=== PATIENT | male | born 1995 | race Caucasian/White ===

== ENCOUNTER 2017-07-14 12:24 | Emergency (ER) | payer MEDICAID ==
[~2017-07-14 12:24] MED LIST: ALBU8HFA PO; NO HOME MEDS
[2017-07-14] MEDS ORDERED: PENI250T2 PO (12:46)
[2017-07-14] MEDS ORDERED: HYDR-569 PO (12:46)
[2017-07-14 12:51] VITALS: BP 172/99
== END 2017-07-14 12:55 | disposition home or self-care (01) ==
LOC: ER 12:25
DX: K08.89 Other specified disorders of teeth and supporting structures (principal); F12.10 Cannabis abuse, uncomplicated; F15.10 Other stimulant abuse, uncomplicated; J45.909 Unspecified asthma, uncomplicated; Z59.0 Homelessness
CPT/HCPCS: 99283

== ENCOUNTER 2017-07-31 15:20 | Emergency (ER) | payer MEDICAID ==
[~2017-07-31] VITALS: Ht 172.7 cm; Wt 88.6 kg
[~2017-07-31 15:20] MED LIST changes: +HYDR-569 PO
[2017-07-31] MEDS ORDERED: HYDR-3965 PO (15:55)
[2017-07-31 16:09] VITALS: BP 148/87
== END 2017-07-31 16:03 | disposition home or self-care (01) ==
LOC: ER 15:21
DX: S02.5XXD Fracture of tooth (traumatic), subsequent encounter for fracture with routine healing (principal); K08.89 Other specified disorders of teeth and supporting structures; F12.10 Cannabis abuse, uncomplicated; F15.10 Other stimulant abuse, uncomplicated; J45.909 Unspecified asthma, uncomplicated; Z59.0 Homelessness; Z79.899 Other long term (current) drug therapy; X58.XXXD Exposure to other specified factors, subsequent encounter
CPT/HCPCS: 99282; 99283

== ENCOUNTER 2017-09-26 11:42 | Emergency (ER) | payer MEDICAID ==
[~2017-09-26] VITALS: Ht 190.5 cm; Wt 88.8 kg
[2017-09-26 12:10] VITALS: BP 126/76
[2017-09-26] MEDS ORDERED: HYDROcodone/acetaminophen 5mg/325mg tablet PO ONE (12:30)
[2017-09-26] MEDS ORDERED: naproxen 500mg tablet PO ONE (12:30)
[2017-09-26] MEDS ORDERED: penicillin V potassium 500mg tablet PO ONE (12:30)
[2017-09-26] MEDS ORDERED: NAPR-56 PO (12:32)
[2017-09-26] MEDS ORDERED: PENI500T2 PO (12:32)
== END 2017-09-26 12:56 | disposition home or self-care (01) ==
LOC: ER 11:43
DX: K08.89 Other specified disorders of teeth and supporting structures (principal); J45.909 Unspecified asthma, uncomplicated; F12.10 Cannabis abuse, uncomplicated; F15.10 Other stimulant abuse, uncomplicated; Z56.0 Unemployment, unspecified; Z60.2 Problems related to living alone; Z59.0 Homelessness; Z79.899 Other long term (current) drug therapy
CPT/HCPCS: 99284

== ENCOUNTER 2018-01-08 13:06 | Emergency (ER) | payer MEDICAID ==
[~2018-01-08] VITALS: Ht 190.5 cm; Wt 79.5 kg
[2018-01-08 13:08] VITALS: BP 140/75
== END 2018-01-08 16:15 | disposition left against medical advice (07) ==
LOC: ER 13:07
DX: M54.5 Low back pain (principal); Z53.21 Procedure and treatment not carried out due to patient leaving prior to being seen by health care provider

== ENCOUNTER 2018-01-30 10:46 | Emergency (ER) | payer MEDICAID ==
[~2018-01-30] VITALS: Ht 188 cm; Wt 84.0 kg
[2018-01-30 11:58] VITALS: BP 125/56
== END 2018-01-30 11:59 | disposition home or self-care (01) ==
LOC: ER 10:47
DX: K02.9 Dental caries, unspecified (principal); F12.90 Cannabis use, unspecified, uncomplicated; F15.90 Other stimulant use, unspecified, uncomplicated; J45.909 Unspecified asthma, uncomplicated; Z79.899 Other long term (current) drug therapy; Z59.0 Homelessness; Z56.0 Unemployment, unspecified
CPT/HCPCS: 99281

== ENCOUNTER 2018-02-10 11:55 | Emergency (ER) | payer MEDICAID ==
[~2018-02-10] VITALS: Ht 185.4 cm; Wt 80.9 kg
[2018-02-10] MEDS ORDERED: azithromycin 250mg tablet PO ONE (12:40)
[2018-02-10] MEDS ORDERED: ketorolac trometh inj. 60 MG/2 ML VIAL IM ONE (12:40)
[2018-02-10] MEDS ORDERED: ACET-2119 PO (13:48)
[2018-02-10] MEDS ORDERED: IBUP-1984 PO (13:48)
[2018-02-10] MEDS ORDERED: AZIT-63 PO (13:48)
[2018-02-10 13:58] VITALS: BP 148/72
== END 2018-02-10 14:01 | disposition home or self-care (01) ==
LOC: ER 11:55
DX: R91.8 Other nonspecific abnormal finding of lung field (principal); M54.9 Dorsalgia, unspecified; F12.90 Cannabis use, unspecified, uncomplicated; F15.90 Other stimulant use, unspecified, uncomplicated; J45.909 Unspecified asthma, uncomplicated; Z79.899 Other long term (current) drug therapy; Z60.2 Problems related to living alone; Z59.0 Homelessness; Z56.0 Unemployment, unspecified
CPT/HCPCS: 71046; 96372; 99284; J1885

== ENCOUNTER 2018-10-22 03:36 | Emergency (ER) | payer MEDICAID ==
[~2018-10-22] VITALS: Ht 190.5 cm; Wt 77.0 kg
[~2018-10-22 03:36] MED LIST changes: +HYDR-4383 PO; -HYDR-569 PO
[2018-10-22] MEDS ORDERED: HYDR28CR14 TOP (03:46)
[2018-10-22 03:47] VITALS: BP 154/100
== END 2018-10-22 03:40 | disposition home or self-care (01) ==
LOC: ER 03:38
DX: L23.7 Allergic contact dermatitis due to plants, except food (principal); R21 Rash and other nonspecific skin eruption; J45.909 Unspecified asthma, uncomplicated; F17.210 Nicotine dependence, cigarettes, uncomplicated; F12.90 Cannabis use, unspecified, uncomplicated; F15.90 Other stimulant use, unspecified, uncomplicated; Z60.2 Problems related to living alone; Z59.0 Homelessness; Z56.0 Unemployment, unspecified; Z79.899 Other long term (current) drug therapy
CPT/HCPCS: 99282

== ENCOUNTER 2019-06-11 01:36 | Emergency (ER) | payer MEDICAID ==
[~2019-06-11] VITALS: Ht 188 cm; Wt 77.2 kg
[~2019-06-11 01:36] MED LIST changes: +HYDR28CR14 TOP
[2019-06-11 02:02] VITALS: BP 160/98
[2019-06-11] MEDS ORDERED: CEPH-571 PO (02:54)
== END 2019-06-11 03:12 | disposition home or self-care (01) ==
LOC: ER 01:36
DX: S90.512A Abrasion, left ankle, initial encounter (principal); J45.909 Unspecified asthma, uncomplicated; F31.9 Bipolar disorder, unspecified; F12.90 Cannabis use, unspecified, uncomplicated; F15.90 Other stimulant use, unspecified, uncomplicated; F10.99 Alcohol use, unspecified with unspecified alcohol-induced disorder; Z59.0 Homelessness; Z60.2 Problems related to living alone; Z56.0 Unemployment, unspecified; Z79.899 Other long term (current) drug therapy; W22.8XXA Striking against or struck by other objects, initial encounter; Y93.51 Activity, roller skating (inline) and skateboarding; Y92.89 Other specified places as the place of occurrence of the external cause; Y99.8 Other external cause status; Y90.9 Presence of alcohol in blood, level not specified
CPT/HCPCS: 99283

== ENCOUNTER 2020-03-10 14:30 | Emergency (ER) | payer MEDICAID ==
[~2020-03-10] VITALS: Ht 190.5 cm; Wt 72.7 kg
[~2020-03-10 14:30] MED LIST changes: +CEPH-571 PO
[2020-03-10 15:09] VITALS: BP 136/94
--- NOTE | 2020-03-10 15:19 | NUR ---
PT TO XRAY
== END 2020-03-10 16:05 | disposition home or self-care (01) ==
LOC: ER 14:32
DX: S62.636A Displaced fracture of distal phalanx of right little finger, initial encounter for closed fracture (principal); M79.644 Pain in right finger(s); M79.89 Other specified soft tissue disorders; R20.0 Anesthesia of skin; J45.909 Unspecified asthma, uncomplicated; F31.9 Bipolar disorder, unspecified; F12.90 Cannabis use, unspecified, uncomplicated; F15.90 Other stimulant use, unspecified, uncomplicated; Z72.89 Other problems related to lifestyle; Z60.2 Problems related to living alone; Z56.0 Unemployment, unspecified; Z59.0 Homelessness; Z79.2 Long term (current) use of antibiotics; Z79.899 Other long term (current) drug therapy; W18.39XA Other fall on same level, initial encounter; Y93.89 Activity, other specified; Y92.89 Other specified places as the place of occurrence of the external cause; Y99.8 Other external cause status
CPT/HCPCS: 29130; 73140; 99283

== ENCOUNTER 2020-05-27 12:09 | Inpatient (IN) | payer MEDICAID ==
[~2020-05-27] VITALS: Ht 190.5 cm; Wt 72.3 kg
[2020-05-27] MEDS ORDERED: normal saline 1000ML IV soln IV ONE (15:20)
[2020-05-27] MEDS ORDERED: vancomycin/NS 1 GM ADD-VANTAGE 250 ML IV ONE (15:25)
[2020-05-27 15:48] LABS: BASOPHILS % (AUTO) 0.1 % (0-1); EOSINOPHILS % (AUTO) 0 % (0-6); HEMATOCRIT 37.9 % (42.0-52.0); HEMOGLOBIN 12.4 g/dl (14.0-17.9); LYMPHOCYTES # (AUTO) 1.4 X10'3 (1.1-4.8); LYMPHOCYTES % (AUTO) 5.1 % (21-51); MEAN CORPUSCULAR HEMOGLOBIN 25.5 PG (27.0-31.0); MEAN CORPUSCULAR HGB CONC 32.8 g/dL (33.0-36.5); MEAN CORPUSCULAR VOLUME 77.9 FL (78-98); MONOCYTES # (AUTO) 1.5 X10'3 (0-0.9); MONOCYTES % (AUTO) 5.6 % (2-12); NEUTROPHILS # (AUTO) 23.6 X10'3 (1.8-7.7); NEUTROPHILS % (AUTO) 89.2 % (42-75); PLATELET COUNT 407 X10'3 (140-440); RED BLOOD COUNT 4.87 X10'6 (4.70-6.10); RED CELL DISTRIBUTION WIDTH 14.7 % (11.5-14.5)
[2020-05-27 15:51] LABS: WHITE BLOOD COUNT 26.5 X10'3 (4.5-11.0)
--- NOTE | 2020-05-27 16:02 | NUR ---
Pt grandfather called his phone number is [phone], if possible he would like an update but he was informed to call back if he doesn't hear from us in a few hours.
[2020-05-27] MEDS ORDERED: CefTRIAXone/D5W-Rocephin 1gm 50 ML IV ONE (16:05)
[2020-05-27 16:06] LABS: ALANINE AMINOTRANSFERASE 58 U/L (12-78); ALBUMIN/GLOBULIN RATIO 0.5 (1.1-1.5); ALKALINE PHOSPHATASE 178 IU/L (46-116); ANION GAP 8 (8-16); ASPARTATE AMINO TRANSFERASE 32 U/L (10-37); BILIRUBIN,TOTAL 0.7 MG/DL (0.1-1.0); BLOOD UREA NITROGEN 9 MG/DL (7-18); BUN/CREATININE RATIO 9.9 (5.4-32.0); CALCIUM 9.2 MG/DL (8.5-10.1); CHLORIDE 95 MMOL/L (99-107); CREATININE 0.91 MG/DL (0.60-1.10); GLUCOSE 134 MG/DL (70-104); MAGNESIUM 1.9 MG/DL (1.5-2.4); POTASSIUM 4.1 MMOL/L (3.5-5.1); SODIUM 131 MMOL/L (135-145); TOTAL CARBON DIOXIDE 28.3 MMOL/L (24-32); TOTAL PROTEIN 8.7 G/DL (6.4-8.2); eGFR > 90 ML/MIN
--- NOTE | 2020-05-27 16:08 | NUR ---
Patient brought to room 15. Given call light, warm blanket. In position of comfort.
[2020-05-27] MEDS ORDERED: morphine 10mg/ml inj. IV ONE (16:10)
[2020-05-27] MEDS ORDERED: ondansetron/PF 4mg/2ml inj IV ONE (16:10)
[2020-05-27 16:34] LABS: TOTAL CELLS COUNTED 100
[2020-05-27 16:36] LABS: MICROCYTOSIS 1+; PLATELET ESTIMATE NORMAL; TOXIC GRANULATION 1+; TOXIC VACUOLATION FEW
[2020-05-27] MEDS ORDERED: iohexol 300mg/ml 100ml inj. ONE (16:55)
[2020-05-27 17:11] LABS: PARTIAL THROMBOPLASTIN TIME 33 SECONDS (22-32)
--- NOTE | 2020-05-27 17:27 | NUR ---
AL, PT'S GRANDFATHER BROUGHT HIM TO THE HOSPITAL. HIS (CELL) IS [phone], AND (HOME NUMBER) IS [phone].
[2020-05-27 18:09] LABS: CLARITY,URINE CLEAR (Clear); COLOR,URINE YELLOW (Yellow); GLUCOSE, URINE NEGATIVE (Neg); KETONES,URINE NEGATIVE (Neg); LEUKOCYTE ESTERASE ,URINE NEGATIVE (Neg); NITRITES, URINE NEGATIVE (Neg); OCCULT BLOOD,URINE NEGATIVE (Neg); PROTEIN,URINE NEGATIVE (Neg)
[2020-05-27 18:12] LABS: UA COLLECTION TYPE URINAL
[2020-05-27 18:22] LABS: URINE AMPHETAMINE SCREEN POSITIVE (Neg); URINE BARBITUATE SCREEN NEGATIVE (Neg); URINE BENZODIAZEPINES SCREEN NEGATIVE (Neg); URINE CANNABINOID SCREEN POSITIVE (Neg); URINE COCAINE SCREEN NEGATIVE (Neg); URINE METHADONE SCREEN NEGATIVE (Neg); URINE OPIATE SCREEN POSITIVE (Neg); URINE PHENCYCLIDINE SCREEN NEGATIVE (Neg)
[2020-05-27] MEDS ORDERED: magnesium hydroxide 30ml (MOM) UD suspension PO PRN (20:30)
[2020-05-27] MEDS ORDERED: magnesium 4gm in 100ml NS 100 ML IV PRN (20:30)
[2020-05-27] MEDS ORDERED: magnesium 2GM in 50ml NS 50 ML IV PRN (20:30)
[2020-05-27] MEDS ORDERED: ondansetron/PF 4mg/2ml inj IV PRN (20:30)
[2020-05-27] MEDS ORDERED: HYDROcodone/acetaminophen 10/325mg tab PO PRN (20:30)
[2020-05-27] MEDS ORDERED: normal saline 1000ml 1,000 ML IV SCH (20:30)
[2020-05-27] MEDS ORDERED: HYDROmorphone inj. 0.5 MG/0.5 ML DISP.SYRIN IV PRN (20:30)
[2020-05-27] MEDS ORDERED: acetaminophen 650mg rectal suppository RC PRN (20:30)
[2020-05-27] MEDS ORDERED: potassium CL 10mEq/100ml bag 100 ML IV PRN ×2 (20:30)
[2020-05-27] MEDS ORDERED: HYDROcodone/acetaminophen 5mg/325mg tablet PO PRN (20:30)
[2020-05-27] MEDS ORDERED: potassium Cl 20 mEq SR tablet PO PRN ×2 (20:30)
[2020-05-27] MEDS ORDERED: magnesium Cl slow-release 64mg tablet PO PRN (20:30)
[2020-05-27] MEDS ORDERED: bisacodyl 10mg suppository rectal RC PRN (20:30)
[2020-05-27] MEDS ORDERED: metoclopramide 5 mg/ml inj IV PRN (20:30)
[2020-05-27] MEDS ORDERED: acetaminophen 325mg tablet PO PRN ×2 (20:30)
[2020-05-27] MEDS ORDERED: LORazepam 1 MG tablet PO PRN (20:30)
[2020-05-27] MEDS ORDERED: mag hydrox/Alum hydrox/simeth 30ml oral suspension PO PRN (20:30)
[2020-05-27 20:52] LABS: C-REACTIVE PROTEIN 17.89 MG/DL (0.0-0.5)
[2020-05-27] MEDS ORDERED: VANCOmycin 1250MG/NS 250ml Bag 250 ML IV SCH (21:00)
[2020-05-27] MEDS ORDERED: temazepam 15mg capsule PO PRN (21:00)
--- NOTE | 2020-05-27 21:33 | NUR ---
Received patient from ER. Transferred to bed by independently ambulating. VSS 125/65, 75, 18, 98.5 Temp, 97 RA. C/o left arm pain 02/23. [place] given as ordered.
[2020-05-28 00:15] VITALS: BP 131/70
[2020-05-28] MEDS ORDERED: VANCOmycin 1250MG/NS 250ml Bag 250 ML IV SCH (03:00)
[2020-05-28 05:13] LABS: BASOPHILS % (AUTO) 0.2 % (0-1); EOSINOPHILS % (AUTO) 0 % (0-6); HEMATOCRIT 34.6 % (42.0-52.0); HEMOGLOBIN 11.4 g/dl (14.0-17.9); LYMPHOCYTES # (AUTO) 1.6 X10'3 (1.1-4.8); MEAN CORPUSCULAR HEMOGLOBIN 25.8 PG (27.0-31.0); MEAN CORPUSCULAR VOLUME 78.2 FL (78-98); MEAN PLATELET VOLUME 7.6 FL (7.4-10.4); MONOCYTES # (AUTO) 1.7 X10'3 (0-0.9); MONOCYTES % (AUTO) 6.5 % (2-12); NEUTROPHILS # (AUTO) 23.1 X10'3 (1.8-7.7); NEUTROPHILS % (AUTO) 87.3 % (42-75); PLATELET COUNT 393 X10'3 (140-440); RED BLOOD COUNT 4.42 X10'6 (4.70-6.10); RED CELL DISTRIBUTION WIDTH 14.5 % (11.5-14.5)
[2020-05-28 05:23] LABS: ALANINE AMINOTRANSFERASE 49 U/L (12-78); ALBUMIN 2.5 G/DL (3.4-5.0); ALBUMIN/GLOBULIN RATIO 0.5 (1.1-1.5); ALKALINE PHOSPHATASE 182 IU/L (46-116); ANION GAP 9 (8-16); ASPARTATE AMINO TRANSFERASE 30 U/L (10-37); BILIRUBIN,TOTAL 0.7 MG/DL (0.1-1.0); BLOOD UREA NITROGEN 8 MG/DL (7-18); BUN/CREATININE RATIO 10.4 (5.4-32.0); CALCIUM 8.7 MG/DL (8.5-10.1); CHLORIDE 97 MMOL/L (99-107); CREATININE 0.77 MG/DL (0.60-1.10); GLUCOSE 111 MG/DL (70-104); MAGNESIUM 1.8 MG/DL (1.5-2.4); PHOSPHORUS 2.4 MG/DL (2.3-4.5); POTASSIUM 3.8 MMOL/L (3.5-5.1); SODIUM 131 MMOL/L (135-145); TOTAL CARBON DIOXIDE 25.3 MMOL/L (24-32); TOTAL PROTEIN 7.7 G/DL (6.4-8.2); eGFR > 90 ML/MIN
[2020-05-28 05:25] LABS: WHITE BLOOD COUNT 26.5 X10'3 (4.5-11.0)
--- NOTE | 2020-05-28 06:30 | NUR ---
Patient in room [facility]. I have received report from Cintia REYNOLDS and had the opportunity to ask questions and assume patient care.
--- NOTE | 2020-05-28 06:30 | NUR ---
Problems reprioritized. Patient report given, questions answered & plan of care reviewed with Tracey REYNOLDS.
--- NOTE | 2020-05-28 06:33 | NUR ---
Patient in room [facility] 344B. I have received report from GAIL ALLEN and had the opportunity to ask questions and assume patient care.
[2020-05-28 07:00] VITALS: BP 122/72
[2020-05-28] MEDS ORDERED: FLU VACC QS2020-21(6MOS UP)/PF 60 MCG/0.5 ML SYRINGE IMVAC ONE (07:35)
[2020-05-28] MEDS ORDERED: enoxaparin 40mg/0.4ml syringe SUBCUT SCH (08:00)
[2020-05-28] MEDS ORDERED: K and/or MAG REPLACEMENT MC SCH (08:00)
[2020-05-28] MEDS ORDERED: nicotine 14mg patch - 24hr TD SCH (08:00)
[2020-05-28] MEDS ORDERED: CefTRIAXone/D5W-Rocephin 1gm 50 ML IV SCH (08:00)
[2020-05-28 09:19] LABS: MICROCYTOSIS 1+; PLATELET ESTIMATE NORMAL; TOTAL CELLS COUNTED 100; TOXIC GRANULATION 1+; TOXIC VACUOLATION FEW
--- NOTE | 2020-05-28 10:00 | NUR ---
Pt was seen and examined by [facility] this AM. Pt gave verbal consent to be seen. He was not attentive and would not answer questions about how he obtained the wound or how it started. The wounds were noted in cluster on posterior left forearm, antecubital area and some lesions on the left hand as well. All open areas were cleansed with wound cleanser, rinsed with NS and dried. Therahoney was applied to wound beds, covered with alginate and wrapped with gauze roll. Would have recommended this treatment Q2D and PRN soiling/displacement. The wound beds were extensively slough-covered, reddened and arm was swollen and indurated on examination.
[2020-05-28 11:00] VITALS: BP 114/57
[2020-05-28] MEDS ORDERED: vancomycin/NS 1 GM ADD-VANTAGE 250 ML IV SCH (11:00)
--- NOTE | 2020-05-28 11:24 | NUR ---
Student documentation: I have reviewed and agree with all interventions, assessments performed and documented by Nely, practical nursing instructor.
--- NOTE | 2020-05-28 11:25 | NUR ---
Student Medication Administration: For this medication-pass time frame, all medication were reviewed, dispensed, administered and documented per hospital policy by anna marie Mckay.
[2020-05-28] MEDS ORDERED: iohexol 300mg/ml 100ml inj. ONE (11:26)
--- NOTE | 2020-05-28 12:02 | NUR ---
Problems reprioritized. Patient report given, questions answered & plan of care reviewed with Cintia REYNOLDS.
[2020-05-28] MEDS ORDERED: NO HOME MEDS (12:10)
--- NOTE | 2020-05-28 13:45 | NUR ---
PATIENT LEFT AGAINST MEDICAL ADVICE. PATIENT WAS EDUCATED ON THE POTENTIAL RISKS OF NOT STAYING FOR TREATMENT. PATIENT STATED HE UNDERSTOOD AND DID NOT CARE. PATIENT LEFT AFTER SIGNING PAPERWORK
[2020-05-29] MEDS ORDERED: VANCOMYCIN LEVEL IV ONE (10:30)
== END 2020-05-28 13:44 | disposition left against medical advice (07) | DRG 720 ==
LOC: ER 12:09 → ED HOLD 20:30 → SUR 3N 21:25
PROVIDERS: ADMIT Family Medicine; ATTEND Internal Medicine
PROC: B32T1ZZ Computerized Tomography (CT Scan) of Left Pulmonary Artery using Low Osmolar Contrast (ICD-10-PCS; principal; 2020-05-28)
PROC: B32S1ZZ Computerized Tomography (CT Scan) of Right Pulmonary Artery using Low Osmolar Contrast (ICD-10-PCS; 2020-05-28)
DX: A41.9 Sepsis, unspecified organism (principal); L03.114 Cellulitis of left upper limb; D50.9 Iron deficiency anemia, unspecified; E87.1 Hypo-osmolality and hyponatremia; F17.200 Nicotine dependence, unspecified, uncomplicated; Z20.828 Contact with and (suspected) exposure to other viral communicable diseases; J18.9 Pneumonia, unspecified organism; Z53.29 Procedure and treatment not carried out because of patient's decision for other reasons
CPT/HCPCS: 36415; 71045; 71260; 73060; 73090; 73201; 80053; 80305; 81003; 82728; 83605; 83615; 83735; 83880; 84100; 84145; 85007; 85025; 85384; 85610; 85730; 86140; 87040; 87635; 93005; 93308; 99285; G0378; J0696; J1650; J2270; J2405; J3370; J7030; Q2039; Q9967

== ENCOUNTER 2020-05-29 17:48 | Inpatient (IN) | payer MEDICAID ==
[~2020-05-29] VITALS: Ht 190.5 cm; Wt 72.2 kg
[~2020-05-29 17:48] MED LIST changes: -ALBU8HFA PO; -CEPH-571 PO; -HYDR-4383 PO; -HYDR28CR14 TOP
[2020-05-29 19:20] LABS: BASOPHILS # (AUTO) 0.1 X10'3 (0-0.2); BASOPHILS % (AUTO) 0.3 % (0-1); EOSINOPHILS % (AUTO) 0.2 % (0-6); HEMATOCRIT 34.2 % (42.0-52.0); HEMOGLOBIN 11.3 g/dl (14.0-17.9); LYMPHOCYTES # (AUTO) 2.1 X10'3 (1.1-4.8); MEAN CORPUSCULAR HEMOGLOBIN 25.8 PG (27.0-31.0); MEAN CORPUSCULAR HGB CONC 33.1 g/dL (33.0-36.5); MEAN PLATELET VOLUME 7.1 FL (7.4-10.4); MONOCYTES # (AUTO) 1.1 X10'3 (0-0.9); MONOCYTES % (AUTO) 5.9 % (2-12); NEUTROPHILS # (AUTO) 15.9 X10'3 (1.8-7.7); NEUTROPHILS % (AUTO) 82.6 % (42-75); PLATELET COUNT 431 X10'3 (140-440); RED BLOOD COUNT 4.38 X10'6 (4.70-6.10); RED CELL DISTRIBUTION WIDTH 14.8 % (11.5-14.5); WHITE BLOOD COUNT 19.2 X10'3 (4.5-11.0)
[2020-05-29 19:35] LABS: ALANINE AMINOTRANSFERASE 61 U/L (12-78); ALBUMIN 2.5 G/DL (3.4-5.0); ALBUMIN/GLOBULIN RATIO 0.5 (1.1-1.5); ALKALINE PHOSPHATASE 216 IU/L (46-116); ANION GAP 10 (8-16); ASPARTATE AMINO TRANSFERASE 59 U/L (10-37); BILIRUBIN,TOTAL 0.3 MG/DL (0.1-1.0); CALCIUM 8.3 MG/DL (8.5-10.1); CHLORIDE 95 MMOL/L (99-107); CREATININE 0.85 MG/DL (0.60-1.10); GLUCOSE 113 MG/DL (70-104); POTASSIUM 3.4 MMOL/L (3.5-5.1); SODIUM 131 MMOL/L (135-145); TOTAL CARBON DIOXIDE 25.7 MMOL/L (24-32); TOTAL PROTEIN 7.7 G/DL (6.4-8.2); eGFR > 90 ML/MIN
[2020-05-29 19:37] LABS: BLOOD UREA NITROGEN 14 MG/DL (7-18); BUN/CREATININE RATIO 16.5 (5.4-32.0)
[2020-05-29] MEDS ORDERED: CefTRIAXone 2gm/D5W 50ml BAG 50 ML IV ONE (19:50)
[2020-05-29] MEDS ORDERED: vancomycin/NS 1 GM ADD-VANTAGE 250 ML IV ONE (19:50)
[2020-05-29 20:06] LABS: CLARITY,URINE CLEAR (Clear); COLOR,URINE AMBER (Yellow); GLUCOSE, URINE NEGATIVE (Neg); KETONES,URINE NEGATIVE (Neg); LEUKOCYTE ESTERASE ,URINE NEGATIVE (Neg); NITRITES, URINE NEGATIVE (Neg); OCCULT BLOOD,URINE NEGATIVE (Neg); PH,URINE 6.5 (4.8-8.0); PROTEIN,URINE TRACE mg/dl (Neg)
[2020-05-29 20:12] LABS: UA COLLECTION TYPE URINAL
[2020-05-29 20:15] LABS: BACTERIA,URINE NONE SEEN /HPF (Neg); MUCUS STRANDS FEW /LPF (Neg); RBC,URINE NONE SEEN /HPF (0-2); SQUAMOUS EPITHELIAL CELL,UR FEW /LPF (FEW); WBC,URINE 0-4 /HPF (0-4)
[2020-05-29] MEDS ORDERED: ketorolac trometh. 30mg/ml inj. IV ONE (20:45)
[2020-05-29] MEDS ORDERED: potassium Cl 20 mEq SR tablet PO PRN ×2 (22:20)
[2020-05-29] MEDS ORDERED: magnesium Cl slow-release 64mg tablet PO PRN (22:20)
[2020-05-29] MEDS ORDERED: magnesium 2GM in 50ml NS 50 ML IV PRN (22:20)
[2020-05-29] MEDS ORDERED: HYDROcodone/acetaminophen 5mg/325mg tablet PO PRN (22:20)
[2020-05-29] MEDS ORDERED: ondansetron/PF 4mg/2ml inj IV PRN (22:20)
[2020-05-29] MEDS ORDERED: normal saline 1000ml 1,000 ML IV SCH (22:20)
[2020-05-29] MEDS ORDERED: morphine 2 MG/ML inj. syringe IV PRN (22:20)
[2020-05-29] MEDS ORDERED: potassium CL 10mEq/100ml bag 100 ML IV PRN ×2 (22:20)
[2020-05-29] MEDS ORDERED: acetaminophen 325mg tablet PO PRN (22:20)
[2020-05-29] MEDS ORDERED: magnesium 4gm in 100ml NS 100 ML IV PRN (22:20)
[2020-05-30] VITALS: BP 112/54
[2020-05-30 05:16] LABS: ALBUMIN 2.1 G/DL (3.4-5.0); ANION GAP 9 (8-16); CALCIUM 8.1 MG/DL (8.5-10.1); CHLORIDE 101 MMOL/L (99-107); CREATININE 0.83 MG/DL (0.60-1.10); GLUCOSE 100 MG/DL (70-104); MAGNESIUM 2.1 MG/DL (1.5-2.4); POTASSIUM 3.7 MMOL/L (3.5-5.1); SODIUM 135 MMOL/L (135-145); TOTAL CARBON DIOXIDE 25.4 MMOL/L (24-32); eGFR > 90 ML/MIN
[2020-05-30 05:18] LABS: BLOOD UREA NITROGEN 16 MG/DL (7-18); BUN/CREATININE RATIO 19.3 (5.4-32.0)
[2020-05-30 06:26] LABS: BASOPHILS # (AUTO) 0.1 X10'3 (0-0.2); BASOPHILS % (AUTO) 0.4 % (0-1); EOSINOPHILS % (AUTO) 0.3 % (0-6); HEMATOCRIT 31.4 % (42.0-52.0); HEMOGLOBIN 10.5 g/dl (14.0-17.9); LYMPHOCYTES # (AUTO) 2.2 X10'3 (1.1-4.8); LYMPHOCYTES % (AUTO) 13.1 % (21-51); MEAN CORPUSCULAR HEMOGLOBIN 26.2 PG (27.0-31.0); MEAN CORPUSCULAR HGB CONC 33.5 g/dL (33.0-36.5); MEAN CORPUSCULAR VOLUME 78.3 FL (78-98); MEAN PLATELET VOLUME 7.5 FL (7.4-10.4); MONOCYTES # (AUTO) 1.1 X10'3 (0-0.9); MONOCYTES % (AUTO) 6.5 % (2-12); NEUTROPHILS # (AUTO) 13.6 X10'3 (1.8-7.7); NEUTROPHILS % (AUTO) 79.7 % (42-75); PLATELET COUNT 407 X10'3 (140-440); RED BLOOD COUNT 4.01 X10'6 (4.70-6.10); RED CELL DISTRIBUTION WIDTH 14.6 % (11.5-14.5)
--- NOTE | 2020-05-30 06:37 | NUR ---
Problems reprioritized. Patient report given, questions answered & plan of care reviewed with Cara REYNOLDS.
[2020-05-30 07:25] VITALS: BP 124/74
[2020-05-30] MEDS: K and/or MAG REPLACEMENT MC SCH ×2 (08:00→20:00)
[2020-05-30] MEDS: docusate sod 100mg capsule PO SCH ×2 (08:00→20:00)
--- NOTE | 2020-05-30 08:09 | NUR ---
Entered patients room to give him his AM medications. He is completely covered in his blanket, over his head. he refuses to pull the blanket down so that I am able to see him. Patient refused his assessment. Patient refused his AM medications. Found IV laying on the floor. When I questioned the patient he stated that it "fell out", he is also refusing to have a new IV placed. Patient has refused all care and refuses to let me see his arm as well.
--- NOTE | 2020-05-30 10:45 | NUR ---
Patient refused thorough assessment. would not uncover himself from blanket. in no apparent distress. breaths even and unlabored. Addendum: 05/30/20 at 1046 by Cara Morton RN Amended: Links added.
--- NOTE | 2020-05-30 10:49 | NUR ---
PAGER ID: [phone] MESSAGE: Ty Mckay 344B: SUSHANT..patient is refusing care. IV "fell out" and he wont let me start another for [facility]. thanks! [phone]
[2020-05-30] MEDS ORDERED: cefepime 2g/NS 100ml ADVANTAGE 100 ML IV SCH (11:35)
[2020-05-30] MEDS: VANCOmycin 1250MG/NS 250ml Bag 250 ML IV SCH ×2 (11:47→23:33)
[2020-05-30 12:35] VITALS: BP 128/71
--- NOTE | 2020-05-30 18:42 | NUR ---
Problems reprioritized. Patient report given, questions answered & plan of care reviewed with Anna RN.
[2020-05-30] MEDS: lactobacillus rhamnosus 10,000 MMU CELLS/CAPSULE PO SCH (20:00)
--- NOTE | 2020-05-30 21:04 | NUR ---
Pt smoking in room. Pt educated on our no-smoking policy. Cigarettes and smearer were confiscated for pts later picking table worker at discharge. Addendum: 05/30/20 at 2111 by Alexsandra Plaza RN Amended: Links added.
[2020-05-30 23:30] VITALS: BP 126/65
[2020-05-31 06:48] LABS: HIV ANTIBODY 1&2 RAPID NON-REACTIVE (Neg)
--- NOTE | 2020-05-31 06:51 | NUR ---
Patient in room [facility]. I have received report from Pat RN and had the opportunity to ask questions and assume patient care.
[2020-05-31 07:00] VITALS: BP 126/73
[2020-05-31] MEDS: K and/or MAG REPLACEMENT MC SCH (08:00)
[2020-05-31] MEDS: docusate sod 100mg capsule PO SCH (08:12)
[2020-05-31] MEDS: lactobacillus rhamnosus 10,000 MMU CELLS/CAPSULE PO SCH (08:12)
--- NOTE | 2020-05-31 08:30 | NUR ---
Patient left AMA and pulled IV out at this time and gathered all belonging upon leaving, found patient DVD player with table operator. In lost and found labeled with name at this time.
[2020-05-31] MEDS ORDERED: ceFAZolin 2gm in dextrose, iso 50 ML IV SCH (17:47)
[2020-05-31] MEDS ORDERED: VANCOMYCIN LEVEL IV ONE (21:30)
== END 2020-05-31 08:35 | disposition home or self-care (01) | DRG 383 ==
LOC: ER 17:48 → ED HOLD 22:19 → SUR 3N 23:15
PROVIDERS: ADMIT Internal Medicine; ATTEND Internal Medicine
DX: L03.114 Cellulitis of left upper limb (principal); M60.822 Other myositis, left upper arm; I82.619 Acute embolism and thrombosis of superficial veins of unspecified upper extremity; F11.10 Opioid abuse, uncomplicated; F17.210 Nicotine dependence, cigarettes, uncomplicated; Z53.29 Procedure and treatment not carried out because of patient's decision for other reasons; J45.909 Unspecified asthma, uncomplicated; Z59.0 Homelessness; Z86.718 Personal history of other venous thrombosis and embolism; Z86.72 Personal history of thrombophlebitis
CPT/HCPCS: 36415; 80048; 80053; 80074; 81001; 83605; 83735; 84145; 85025; 86703; 87040; 87081; G0378; J0692; J0696; J1885; J3370; J7030

== ENCOUNTER 2020-10-19 16:41 | Emergency (ER) | payer MEDICAID ==
[~2020-10-19] VITALS: Ht 188 cm; Wt 77.3 kg
[2020-10-19] MEDS ORDERED: vancomycin/NS 1 GM ADD-VANTAGE 250 ML IV ONE (17:25)
[2020-10-19] MEDS ORDERED: piperacillin/tazo 3.375gm/50ml 50 ML IV ONE (17:25)
[2020-10-19] MEDS ORDERED: normal saline 1000ML IV soln IV ONE (17:25)
[2020-10-19 17:59] LABS: BASOPHILS # (AUTO) 0.1 X10'3 (0-0.2); BASOPHILS % (AUTO) 0.3 % (0-1); EOSINOPHILS # (AUTO) 0.1 X10'3 (0-0.9); EOSINOPHILS % (AUTO) 0.3 % (0-6); HEMOGLOBIN 10.1 g/dl (14.0-17.9); LYMPHOCYTES # (AUTO) 2.3 X10'3 (1.1-4.8); LYMPHOCYTES % (AUTO) 8.7 % (21-51); MEAN CORPUSCULAR HEMOGLOBIN 25.2 PG (27.0-31.0); MEAN CORPUSCULAR HGB CONC 32.7 g/dL (33.0-36.5); MEAN CORPUSCULAR VOLUME 77.1 FL (78-98); MEAN PLATELET VOLUME 7.4 FL (7.4-10.4); MONOCYTES # (AUTO) 1.3 X10'3 (0-0.9); MONOCYTES % (AUTO) 4.8 % (2-12); NEUTROPHILS # (AUTO) 22.7 X10'3 (1.8-7.7); NEUTROPHILS % (AUTO) 85.9 % (42-75); PLATELET COUNT 440 X10'3 (140-440); RED BLOOD COUNT 4.02 X10'6 (4.70-6.10); RED CELL DISTRIBUTION WIDTH 14.9 % (11.5-14.5)
[2020-10-19 18:03] LABS: WHITE BLOOD COUNT 26.5 X10'3 (4.5-11.0)
[2020-10-19 18:14] LABS: ALANINE AMINOTRANSFERASE 74 U/L (12-78); ALBUMIN 2.4 G/DL (3.4-5.0); ALBUMIN/GLOBULIN RATIO 0.4 (1.1-1.5); ALKALINE PHOSPHATASE 264 IU/L (46-116); ANION GAP 11 (8-16); ASPARTATE AMINO TRANSFERASE 59 U/L (10-37); BILIRUBIN,TOTAL 0.3 MG/DL (0.1-1.0); BLOOD UREA NITROGEN 11 MG/DL (7-18); BUN/CREATININE RATIO 12.4 (5.4-32.0); CALCIUM 8.5 MG/DL (8.5-10.1); CHLORIDE 98 MMOL/L (99-107); CREATININE 0.89 MG/DL (0.60-1.10); ETHANOL < 0.010 GM/DL (0.0-0.010); SODIUM 135 MMOL/L (135-145); TOTAL CARBON DIOXIDE 26.1 MMOL/L (24-32); eGFR > 90 ML/MIN
[2020-10-19 18:17] LABS: POTASSIUM 2.8 MMOL/L (3.5-5.1)
[2020-10-19 18:18] LABS: GLUCOSE 133 MG/DL (70-104)
[2020-10-19 18:23] VITALS: BP 123/66
[2020-10-19] MEDS ORDERED: iohexol 300mg/ml 100ml inj. ONE (18:27)
[2020-10-19 21:26] LABS: PLATELET ESTIMATE NORMAL; TOTAL CELLS COUNTED 100; TOXIC GRANULATION 2+; TOXIC VACUOLATION FEW
[2020-10-19 21:29] LABS: MICROCYTOSIS 1+
== END 2020-10-19 20:44 | disposition left against medical advice (07) ==
LOC: ER 16:42
DX: I82.622 Acute embolism and thrombosis of deep veins of left upper extremity (principal); I89.0 Lymphedema, not elsewhere classified; F19.10 Other psychoactive substance abuse, uncomplicated; L03.114 Cellulitis of left upper limb; F11.10 Opioid abuse, uncomplicated; F15.10 Other stimulant abuse, uncomplicated; J45.909 Unspecified asthma, uncomplicated; F12.90 Cannabis use, unspecified, uncomplicated; Z56.0 Unemployment, unspecified; Z59.0 Homelessness; Z86.19 Personal history of other infectious and parasitic diseases
CPT/HCPCS: 36415; 71045; 73201; 80053; 80320; 83605; 84145; 85007; 85025; 87040; 87077; 87186; 96365; 96368; 99285; J2543; J3370; J7030; Q9967

== ENCOUNTER 2020-10-26 19:43 | Emergency (ER) | payer MEDICAID ==
[~2020-10-26] VITALS: Ht 188 cm; Wt 77.3 kg
[2020-10-26] MEDS ORDERED: ibuprofen 200mg tablet PO ONE (19:55)
[2020-10-26 20:17] LABS: BASOPHILS % (AUTO) 0.2 % (0-1); EOSINOPHILS % (AUTO) 0 % (0-6); HEMATOCRIT 28.1 % (42.0-52.0); MEAN CORPUSCULAR HEMOGLOBIN 24.7 PG (27.0-31.0); MEAN CORPUSCULAR VOLUME 77.2 FL (78-98); MEAN PLATELET VOLUME 7.2 FL (7.4-10.4); MONOCYTES # (AUTO) 0.9 X10'3 (0-0.9); MONOCYTES % (AUTO) 4.5 % (2-12); NEUTROPHILS # (AUTO) 18.4 X10'3 (1.8-7.7); NEUTROPHILS % (AUTO) 90.3 % (42-75); PLATELET COUNT 381 X10'3 (140-440); RED BLOOD COUNT 3.64 X10'6 (4.70-6.10); WHITE BLOOD COUNT 20.4 X10'3 (4.5-11.0)
[2020-10-26 20:32] LABS: ALANINE AMINOTRANSFERASE 34 U/L (12-78); ALBUMIN/GLOBULIN RATIO 0.3 (1.1-1.5); ALKALINE PHOSPHATASE 219 IU/L (46-116); ANION GAP 6 (8-16); ASPARTATE AMINO TRANSFERASE 31 U/L (10-37); BILIRUBIN,TOTAL 0.7 MG/DL (0.1-1.0); BLOOD UREA NITROGEN 20 MG/DL (7-18); BUN/CREATININE RATIO 19.2 (5.4-32.0); CALCIUM 8.7 MG/DL (8.5-10.1); CHLORIDE 98 MMOL/L (99-107); CREATININE 1.04 MG/DL (0.60-1.10); POTASSIUM 3.4 MMOL/L (3.5-5.1); SODIUM 134 MMOL/L (135-145); TOTAL CARBON DIOXIDE 29.6 MMOL/L (24-32); TOTAL PROTEIN 8.4 G/DL (6.4-8.2); eGFR 86 ML/MIN
[2020-10-26 20:34] LABS: GLUCOSE 120 MG/DL (70-104)
[2020-10-26] MEDS ORDERED: normal saline 1000ML IV soln IV ONE (22:20)
[2020-10-26] MEDS ORDERED: vancomycin/NS 1 GM ADD-VANTAGE 250 ML IV ONE (22:20)
[2020-10-26] MEDS ORDERED: piperacillin/tazo 3.375gm/50ml 50 ML IV ONE (22:20)
[2020-10-26] MEDS ORDERED: iohexol 300mg/ml 100ml inj. ONE (22:32)
[2020-10-26] MEDS ORDERED: iohexol 300 MG/1 ML 50ml polymer ONE (22:32)
--- NOTE | 2020-10-26 22:41 | NUR ---
pt to ct via wc
[2020-10-26] MEDS ORDERED: heparin 10,000 units/1 ML INJ IV PRN (23:35)
[2020-10-26] MEDS ORDERED: heparin 10,000 units/1 ML INJ IV ONE (23:35)
--- NOTE | 2020-10-26 23:47 | NUR ---
Pt updated on DX and POC. Informed/educated on the severity of his diagnosis and that he must quit using. He than asked if it was OK if he smoked it. I told him definately not. That this diagnosis is very critical. Spoke with him at length, good eye contact.
[2020-10-27] MEDS ORDERED: normal saline 1000ML IV soln IVB ONE (00:40)
[2020-10-27] MEDS ORDERED: iohexol 350MG/ML 100ml bottle IV ONE (00:41)
[2020-10-27] MEDS: heparin 25,000 UNIT/250ml bag 250 ML IV SCH ×2 (00:49→09:33)
[2020-10-27 00:50] LABS: C-REACTIVE PROTEIN 25.41 MG/DL (0.0-0.5)
--- NOTE | 2020-10-27 01:09 | NUR ---
Pt just had neurology consult via telemedicine.
[2020-10-27 01:45] LABS: BASOPHILS % (AUTO) 0.1 % (0-1); EOSINOPHILS % (AUTO) 0.1 % (0-6); HEMATOCRIT 22.5 % (42.0-52.0); HEMOGLOBIN 7.4 g/dl (14.0-17.9); LYMPHOCYTES % (AUTO) 6.6 % (21-51); MEAN CORPUSCULAR HEMOGLOBIN 25.4 PG (27.0-31.0); MEAN CORPUSCULAR HGB CONC 32.8 g/dL (33.0-36.5); MEAN CORPUSCULAR VOLUME 77.6 FL (78-98); MEAN PLATELET VOLUME 7.4 FL (7.4-10.4); MONOCYTES # (AUTO) 0.9 X10'3 (0-0.9); MONOCYTES % (AUTO) 5.9 % (2-12); NEUTROPHILS # (AUTO) 12.8 X10'3 (1.8-7.7); NEUTROPHILS % (AUTO) 87.3 % (42-75); PLATELET COUNT 295 X10'3 (140-440); RED BLOOD COUNT 2.91 X10'6 (4.70-6.10); WHITE BLOOD COUNT 14.6 X10'3 (4.5-11.0)
[2020-10-27 01:47] LABS: CLARITY,URINE CLEAR (Clear); COLOR,URINE YELLOW (Yellow); GLUCOSE, URINE NEGATIVE (Neg); KETONES,URINE NEGATIVE (Neg); LEUKOCYTE ESTERASE ,URINE NEGATIVE (Neg); NITRITES, URINE NEGATIVE (Neg); OCCULT BLOOD,URINE NEGATIVE (Neg); PH,URINE 6.5 (4.8-8.0); PROTEIN,URINE NEGATIVE (Neg)
[2020-10-27] MEDS ORDERED: mag hydrox/Alum hydrox/simeth 30ml oral suspension PO PRN (01:50)
[2020-10-27] MEDS ORDERED: normal saline 1000ml 1,000 ML IV SCH (01:50)
[2020-10-27] MEDS ORDERED: ondansetron/PF 4mg/2ml inj IV PRN (01:50)
[2020-10-27] MEDS ORDERED: morphine 2 MG/ML inj. syringe IV PRN ×2 (01:50)
[2020-10-27] MEDS ORDERED: acetaminophen 325mg tablet PO PRN (01:50)
[2020-10-27] MEDS ORDERED: potassium Cl 40MEQ/1/2NS 520ml 520 ML IV PRN ×2 (01:50)
[2020-10-27] MEDS ORDERED: potassium Cl 20 mEq SR tablet PO PRN ×2 (01:50)
[2020-10-27] MEDS ORDERED: magnesium hydroxide 30ml (MOM) UD suspension PO PRN (01:50)
[2020-10-27 01:52] LABS: UA COLLECTION TYPE VOIDED
--- NOTE | 2020-10-27 04:27 | NUR ---
PT APPEARS TO BE ASLEEP.
--- NOTE | 2020-10-27 07:10 | NUR ---
Heparin gtt paused. Will draw labs after after appropriate wait for PTT as unable to draw labs from left arm.
--- NOTE | 2020-10-27 07:30 | NUR ---
Lab was drawn and heparin gtt infusing.
[2020-10-27 07:52] LABS: ALANINE AMINOTRANSFERASE 22 U/L (12-78); ALBUMIN 1.1 G/DL (3.4-5.0); ALBUMIN/GLOBULIN RATIO 0.3 (1.1-1.5); ALKALINE PHOSPHATASE 126 IU/L (46-116); ANION GAP 11 (8-16); ASPARTATE AMINO TRANSFERASE 29 U/L (10-37); BILIRUBIN,TOTAL 1.2 MG/DL (0.1-1.0); BLOOD UREA NITROGEN 17 MG/DL (7-18); CALCIUM 6.2 MG/DL (8.5-10.1); CHLORIDE 111 MMOL/L (99-107); GLUCOSE 103 MG/DL (70-104); SODIUM 143 MMOL/L (135-145); TOTAL CARBON DIOXIDE 20.9 MMOL/L (24-32); eGFR 90 ML/MIN
[2020-10-27 07:56] LABS: POTASSIUM 2.4 MMOL/L (3.5-5.1)
[2020-10-27 08:00] VITALS: BP 150/69
[2020-10-27] MEDS ORDERED: K and/or MAG REPLACEMENT MC SCH (08:00)
[2020-10-27] MEDS ORDERED: piperacillin/tazo 3.375gm/50ml 50 ML IV SCH (08:00)
--- NOTE | 2020-10-27 08:22 | NUR ---
LAB CALLED BLOOD CULTURES X2 BOTTLES FROM RIGHT ARM. GRAM POSITIVE COCCI PAIRS AND CHAINS. INFORMED GAIL SNIDER AND DR. ANG
--- NOTE | 2020-10-27 08:55 | NUR ---
LAB CALLED AND INQUIRED ON PENDING PTT THAT WAS DRAWN. LAB RESULTS SHOULD BE COMPLETED IN NEXT 15-20 MINUTES
[2020-10-27] MEDS ORDERED: VANCOmycin 1250MG/NS 250ml Bag 250 ML IV SCH (11:00)
--- NOTE | 2020-10-27 12:35 | NUR ---
PATIENT CRYING IN THE ROOM, "CAN I LEAVE, I WANT TO SEE MY GIRLFRIEND", I INFORMED HIM HE COULD HAVE A VISITOR AND THAT HE WOULD BE LEAVING A. WILL NOTIFY
--- NOTE | 2020-10-27 12:37 | NUR ---
PAGER ID: [phone] MESSAGE: [phone] RE: SPRING BED 6 IS WANTING TO LEAVE AMA.
[2020-10-27] MEDS ORDERED: LORazepam 2 mg/ml vial IV PRN (12:40)
--- NOTE | 2020-10-27 12:46 | NUR ---
OFFERED HELP TO GET TANNER OF GF TO VISIT HIM, HE SAID "NO WAY TO GET I TOUCH WITH HER, SHE IS HOMELESS AND HER PHONE IS BROKEN" OFFERED ATIVAN, REFUSED.
--- NOTE | 2020-10-27 12:48 | NUR ---
PAGER ID: [phone] MESSAGE: [phone] RE: DOW BED 7 REFUSING ATIVAN, INSISTING ON LEAVING AMA.
[2020-10-27] MEDS ORDERED: penicillin G potassium inj 3,000,000 UNIT in normal saline 100ml IV soln 100 ML IV SCH (16:00)
[2020-10-27] MEDS ORDERED: lactobacillus rhamnosus 10,000 MMU CELLS/CAPSULE PO SCH (20:00)
[2020-10-28] MEDS ORDERED: VANCOMYCIN LEVEL IV ONE (22:30)
[2020-10-29 08:35] LABS: ANTITHROMBIN ACTIVITY 65 % (75-135); ANTITHROMBIN ANTIGEN 53 % (72-124); PROTEIN S, FREE 41 % (57-157); PROTEIN S, TOTAL 68 % (60-150)
== END 2020-10-27 13:08 | disposition left against medical advice (07) ==
LOC: ER 19:44 → UNDOADMIN 10-27 01:47 → ED HOLD 10-27 01:47 → UNDODISIN 10-27 13:07
DX: L03.114 Cellulitis of left upper limb (principal); Z20.822 Contact with and (suspected) exposure to COVID-19; I82.C12 Acute embolism and thrombosis of left internal jugular vein; R05 Cough; J45.909 Unspecified asthma, uncomplicated; F31.9 Bipolar disorder, unspecified; F12.90 Cannabis use, unspecified, uncomplicated; F15.90 Other stimulant use, unspecified, uncomplicated; F11.90 Opioid use, unspecified, uncomplicated; Z60.2 Problems related to living alone; Z56.0 Unemployment, unspecified; Z59.0 Homelessness; Z72.89 Other problems related to lifestyle
CPT/HCPCS: 36415; 70491; 70496; 70498; 71045; 73201; 80053; 81003; 81479; 83605; 83891; 83894; 83898; 84145; 85025; 85240; 85300; 85301; 85303; 85305; 85306; 85651; 85730; 86140; 86146; 86147; 87040; 87635; 93306; 96361; 96365; 96366; 96367; 96375; 99291; C9803; J1644; J2270; J2543; J3370; J3480; J7030; Q9967; 87077; 87186; 99285; G0378

== ENCOUNTER 2021-07-06 19:07 | Emergency (ER) | payer MEDICAID ==
[~2021-07-06] VITALS: Ht 188 cm; Wt 70.5 kg
[2021-07-06 20:06] VITALS: BP 147/87
== END 2021-07-06 22:13 | disposition left against medical advice (07) ==
LOC: ER 19:07
DX: M79.631 Pain in right forearm (principal); Z53.21 Procedure and treatment not carried out due to patient leaving prior to being seen by health care provider
CPT/HCPCS: 73090; 99283

== ENCOUNTER 2021-07-24 00:22 | Emergency (ER) | payer MEDICAID ==
[~2021-07-24] VITALS: Ht 190.5 cm; Wt 79.5 kg
[2021-07-24] MEDS ORDERED: CEPH-585 PO (03:40)
[2021-07-24] MEDS ORDERED: gentamicin 0.1% topical ointment 15gm TP ONE (03:40)
[2021-07-24] MEDS ORDERED: gentamicin 0.1% topical ointment 15gm TP SCH (03:40)
[2021-07-24 04:25] VITALS: BP 122/82
== END 2021-07-24 04:38 | disposition home or self-care (01) ==
LOC: ER 00:23
DX: L03.012 Cellulitis of left finger (principal); J45.909 Unspecified asthma, uncomplicated; F17.200 Nicotine dependence, unspecified, uncomplicated; F12.90 Cannabis use, unspecified, uncomplicated; F15.90 Other stimulant use, unspecified, uncomplicated; F11.90 Opioid use, unspecified, uncomplicated; Z59.00 Homelessness unspecified; Z56.0 Unemployment, unspecified
CPT/HCPCS: 29130; 73120; 99283

== ENCOUNTER 2022-03-01 02:20 | Emergency (ER) | payer MEDICAID ==
[~2022-03-01] VITALS: Ht 188 cm; Wt 74.3 kg
[~2022-03-01 02:20] MED LIST changes: +CEPH-585 PO
[2022-03-01 02:23] VITALS: BP 121/91
== END 2022-03-01 03:52 | disposition left against medical advice (07) ==
LOC: ER 02:20
DX: Z04.3 Encounter for examination and observation following other accident (principal); Z53.21 Procedure and treatment not carried out due to patient leaving prior to being seen by health care provider; W19.XXXA Unspecified fall, initial encounter; Y93.89 Activity, other specified; Y92.89 Other specified places as the place of occurrence of the external cause; Y99.8 Other external cause status

== ENCOUNTER 2022-06-20 04:12 | Emergency (ER) | payer MEDICAID ==
[~2022-06-20] VITALS: Ht 188 cm; Wt 81.8 kg
[2022-06-20 04:26] VITALS: BP 151/98
== END 2022-06-20 08:58 | disposition left against medical advice (07) ==
LOC: ER 04:13
DX: M54.9 Dorsalgia, unspecified (principal); Z53.21 Procedure and treatment not carried out due to patient leaving prior to being seen by health care provider

== ENCOUNTER 2024-08-18 11:23 | Emergency (ER) | payer MEDICAID ==
[~2024-08-18] VITALS: Ht 188 cm; Wt 78.6 kg
[~2024-08-18 11:23] MED LIST changes: -CEPH-585 PO
[2024-08-18 11:51] VITALS: BP 154/95; PULSE 84; RESP 18; O2SAT 100
[2024-08-18 18:40] VITALS: TEMP 98.6
== END 2024-08-18 18:41 | disposition left against medical advice (07) ==
LOC: ER 11:23
DX: S02.92XA Unspecified fracture of facial bones, initial encounter for closed fracture (principal); S00.411A Abrasion of right ear, initial encounter; J45.909 Unspecified asthma, uncomplicated; F31.9 Bipolar disorder, unspecified; F17.210 Nicotine dependence, cigarettes, uncomplicated; F12.90 Cannabis use, unspecified, uncomplicated; F15.90 Other stimulant use, unspecified, uncomplicated; X58.XXXA Exposure to other specified factors, initial encounter; Y93.89 Activity, other specified; Y92.89 Other specified places as the place of occurrence of the external cause; Y99.8 Other external cause status
CPT/HCPCS: 70450; 70486; 99284

== ENCOUNTER 2024-09-22 12:23 | Emergency (ER) | payer MEDICAID ==
[~2024-09-22] VITALS: Ht 190.5 cm; Wt 80.3 kg
[2024-09-22 12:41] VITALS: BP 137/88; PULSE 89; RESP 16; O2SAT 100
[2024-09-22] MEDS ORDERED: CEPH-585 PO (14:15)
[2024-09-22] MEDS ORDERED: SULF1TAB45 PO (14:15)
[2024-09-22] MEDS: sulfamethoxazole/trimethoprim DS (800/160mg) tablet PO ONE (14:26)
[2024-09-22] MEDS: cephalexin 250mg capsule PO ONE (14:26)
[2024-09-22 14:29] VITALS: TEMP 98.1
== END 2024-09-22 14:31 | disposition home or self-care (01) ==
LOC: ER 12:24
DX: M00.9 Pyogenic arthritis, unspecified (principal); F15.10 Other stimulant abuse, uncomplicated; F31.9 Bipolar disorder, unspecified; J45.909 Unspecified asthma, uncomplicated; F12.90 Cannabis use, unspecified, uncomplicated; F11.90 Opioid use, unspecified, uncomplicated; Z59.00 Homelessness unspecified
CPT/HCPCS: 73610; 99283

== ENCOUNTER 2025-01-31 15:46 | Emergency (ER) | payer MEDICAID ==
[~2025-01-31] VITALS: Ht 188 cm; Wt 77.0 kg
[2025-01-31 16:03] VITALS: BP 115/77; PULSE 86; RESP 12; TEMP 98.3; O2SAT 99
--- NOTE | 2025-01-31 16:28 | Physician Documentation ---
History of Present Illness ~ Chief Complaint: See Chief Complaint Stated Complaint: BLEEDING GROIN AREA Time Seen by MD: 16:25 Primary Medical Doctor: Martina Woodson Source: patient (6) Mode of Arrival: EMS HPI Patient comes in for evaluation of penile bleeding. He reports that he woke up this morning and when he went to go urinate for the 1st time he noticed quite a lot of blood in the urine. He has continued to bleed from the penis since that time. Paramedics were dispatched and were concerned and he agreed to come along with them, but now at this time saying that he does not want to be treated. He has not had any associated symptoms of fever, penile discharge, dysuria, abdominal pain, vomiting, or fever. He denies any trauma or any instrumentation, and has not had a history of similar problems in the past. Medication Reconciliation Allergies: Coded Allergies: No Known Allergies (Unverified , 01/31/25) Miscellaneous Medications Home Med List (No Home Medications), (Reported) Past Medical History Past Medical History: Asthma, Cellulitis, Bipolar, Depression Past Surgical History: no surgical history Smoking Status: Current every day smoker Alcohol Use: Occasionally Drug Use: marijuana, methamphetamine, heroin Lives with: Alone Lives In: Homeless Occupation: unemployed Review of Systems All Other Systems at this time: Reviewed and Negative Physical Exam Vital Signs: Temperature: 98.3, Source: Oral, Heart Rate: 86, Respiratory Rate: 12, BP: 115/77, Pulse Oximetry: 99, Weight: 77.000 Oxygen Flow Rate: 0 Physical Exam General: Pt is awake, alert, oriented x4 in no acute distress and well appearing. He is holding a towel to his penis. Head: Normocephalic and atraumatic. Eyes: Conjunctiva normal. ENT: Mucous membranes moist. Neck: Supple. Chest: Clear to auscultation bilaterally, without rales, rhonchi, or wheezes. There is no accessory muscle use or retractions. Cardiac: Regular rate and rhythm without murmurs, gallops or rubs. Palpation of the chest wall is normal. Abd: Soft, nondistended, nontender, with normoactive bowel sounds. No guarding or rebound. : Normal circumcised penis, small dribble of blood from the meatus. Milking the shaft results in expulsion of a long narrow clot about 1cm in diameter, follow by a small ooze of blood. No masses, warmth, tenderness appreciated in the glans/shaft/base of the penis. Extremities: Within normal limits without cyanosis, clubbing, or edema. Skin: [place], warm and dry with no significant rash appreciated. Neuro: Cranial nerves II-XII grossly intact. The gait is normal. Progress Progress Note Pt declined to have a peripheral IV placed, refused a blood draw, and catheter placement. He was AOx4 and competent to decide to decline, understood the risk of morbidity and mortality, of the risk of occult trauma/infection/malignancy, but wants to go home and "deal with it by myself." He was encouraged to f/u with the [facility] as soon as possible, which he feels comfortable with, and was encouraged to return immediately for treatment if he changes his mind, or if any heavier bleeding or onset of new symptoms. Results/Orders Results/Orders Vital Signs 01/31/25 01/31/25 16:03 16:18 Temp 98.3 Pulse 86 Resp 12 B/P (MAP) 115/77 Pulse Ox 99 O2 Flow Rate 0 Re-Evaluation Re-Evaluation : Re-Evaluation Time: 17:07 Departure Disposition: LEFT AGAINST MEDICAL ADVICE Impression: Primary Impression: Bleeding of penis Condition: Stable Additional Instructions: Pt left without aftercare instructions but had been given them verbally prior to his departure. Referrals: NO PRIMARY CARE PROVIDER (PCP) Education Educated: Patient Educated regarding: diagnosis, treatment Signature Scribe Signature: Attestation: OBINNA SARAVIA MD Jan 31, 2025 16:28
== END 2025-01-31 16:43 | disposition left against medical advice (07) ==
LOC: ER 15:48
DX: N48.89 Other specified disorders of penis (principal); J45.909 Unspecified asthma, uncomplicated; F17.200 Nicotine dependence, unspecified, uncomplicated; F12.90 Cannabis use, unspecified, uncomplicated; F15.90 Other stimulant use, unspecified, uncomplicated; F11.90 Opioid use, unspecified, uncomplicated; F31.9 Bipolar disorder, unspecified; Z59.00 Homelessness unspecified; Z56.0 Unemployment, unspecified; Z60.2 Problems related to living alone; Z72.89 Other problems related to lifestyle
CPT/HCPCS: 99283

== ENCOUNTER 2025-02-06 08:57 | Emergency (ER) | payer MEDICAID ==
[~2025-02-06] VITALS: Ht 188 cm; Wt 68.2 kg
[2025-02-06 09:02] VITALS: BP 122/68; PULSE 67; RESP 15; TEMP 97; O2SAT 100
--- NOTE | 2025-02-06 09:03 | Physician Documentation ---
History of Present Illness ~ Stated Complaint: CHEST WALL PAIN Time Seen by MD: 08:58 Primary Medical Doctor: Martina Oscar Patient presents to the emergency room with chest pain. Onset of symptoms yesterday. He states that he was admitted at [facility] a proximally two weeks ago and diagnosed with a heart attack but denies any stent placement or intervention. Endorses small amount of pain right now. We are able to get records from patient's admission to the hospital at [facility]. They endorse history of methamphetamine heroin and alcohol abuse and history of traumatic brain injury. He initially presented to their facility on the 6th of this month. He was stating that he had some degree of a skateboard accident complaining of back pain. Patient was tachycardic and hypotensive with elevated lactic acid and significantly elevated procalcitonin. CT showed multifocal pneumonia and possible septic emboli. Echo performed at the facility showed that patient had an ejection fraction of 35-40% and severe tricuspid regurgitati on. 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 It seems he underwent significant alcohol withdrawal and required Precedex for sedation. There is no talk of elevated troponins or heart attacks in the records we obtained. They did mentioned possible pericarditis however patient signed out AMA before workup was completed. Medication Reconciliation Allergies: Coded Allergies: No Known Allergies (Unverified , 01/31/25) Miscellaneous Medications Home Med List (No Home Medications), (Reported) Past Medical History Past Medical History: Asthma, Cellulitis, Bipolar, Depression Past Surgical History: no surgical history Alcohol Use: Occasionally Drug Use: marijuana, methamphetamine, heroin Lives with: Alone Lives In: Homeless Occupation: unemployed Review of Systems ROS All review of systems negative except as per HPI Physical Exam Physical Exam General: Patient is awake, alert, oriented x4 in no acute distress. Pressured speech Head: Normocephalic and atraumatic. Eyes: Conjunctival normal. EOMI. PERRL. ENT: Mucous membranes moist. Neck: Supple, trachea is midline. Chest: Clear to auscultation bilaterally without rales, rhonchi, or wheezes. There is no accessory muscle use or retractions. Cardiac: RRR without murmurs, gallops, or rubs. Abd: Soft, nondistended, nontender, with normoactive bowel sounds. No guarding, rebound, or rigidity. Extremities: Normal strength. Normal range of motion. No deformities or edema. No calf tenderness to palpation Progress Results/Orders Results/Orders Orders - MARTITA MILLS MD Cbc/Diff (02/06/25 09:08) MG (02/06/25 09:08) Electrocardiogram (02/06/25 09:08) PBNP (02/06/25 09:08) Chest,Single View (02/06/25 09:08) BMP (02/06/25 09:08) Hs Troponin I W Calculations (02/06/25 09:08) Hs Troponin I W Calculations (02/06/25 11:08) Hs Troponin I W Calculations (02/06/25 12:08) Vital Signs 02/06/25 09:02 Temp 97.0 Pulse 67 Resp 15 B/P (MAP) 122/68 Pulse Ox 100 EKG/XRAY/CT/US/VASC/MRI EKG : Additional Comment EKG interpreted by myself shows time of 0920, rate 75, sinus rhythm, left axis deviation, no ST changes Chest X-Ray : Additional Comments Chest x-ray interpreted by myself shows normal cardiac silhouette, no pneumoth orax, bilateral increased densities present. Unable to appreciate costophrenic angles Medical Decision Making Findings Patient presented to the emergency room for evaluation of chest pain. Differentials include but are not limited to pneumothorax, ACS, musculoskeletal pain, pulmonary embolism therefore emergent labs and imaging indicated. Kathi ent's chest x-ray is have concerned however before workup could be completed patient is wanting to signed out against medical advice. Departure Disposition: LEFT AGAINST MEDICAL ADVICE Impression: Primary Impression: Chest pain Condition: Fair Referrals: NO PRIMARY CARE PROVIDER (PCP) Signature Scribe Signature: No scribe Attestation: The note accurately reflects work and decisions made by me.Martita Mills MD 02/06/25 09:29 MARTITA MILLS MD Feb 06, 2025 09:03
--- NOTE | 2025-02-06 09:23 | ELECTROCARDIOGRAPH REPORT ---
[facility] Test Date: 2025-02-06 Test Time: 09:20:36 Pat Name: ROSARIO ESCALANTE Department: EMERGENCY ROOM [id number] Room: Gender: M Veterinarian: ETHEL : 1995 Requested By: MARTITA FREEMAN Order Number: [id number] Reading MD: Dr. Dante Toro Measurements Intervals [place] Rate: 75 P: 63 VT: 125 QRS: 262 QRSD: 102 T: 55 QT: 402 QTc: 449 Interpretive Statements Sinus rhythm Left anterior fascicular block ST elev, probable normal early repol pattern Baseline wander in lead(s) V4 Electronically Signed On 02-06-2025 18:20:[address] Dante Toro Please click the below link to view image of tracing.
--- NOTE | 2025-02-06 09:44 | RADIOLOGY REPORT ---
EXAM: DI CHEST,SINGLE VIEW Indication: CP Technique: Single frontal view of the chest was obtained Comparison: CHEST,SINGLE VIEW on DOS: 10/26/20, CHEST,SINGLE VIEW on DOS: 10/19/20 FINDINGS: Lines and Tubes: None Lungs: Diffuse bilateral interstitial opacities. Pleura: No effusion. No pneumothorax. Cardiomediastinal contours: Unremarkable Bones: No acute osseous abnormality. IMPRESSION: Diffuse bilateral interstitial opacities suggestive of atypical infection.
== END 2025-02-06 09:42 | disposition left against medical advice (07) ==
LOC: ER 08:58
DX: R07.89 Other chest pain (principal); I25.2 Old myocardial infarction; J45.909 Unspecified asthma, uncomplicated; F12.90 Cannabis use, unspecified, uncomplicated; F15.90 Other stimulant use, unspecified, uncomplicated; F11.90 Opioid use, unspecified, uncomplicated; F31.9 Bipolar disorder, unspecified; Z72.89 Other problems related to lifestyle; Z56.0 Unemployment, unspecified; Z59.00 Homelessness unspecified; Z60.2 Problems related to living alone
CPT/HCPCS: 71045; 93005; 99283